=== PATIENT | female | born 1965 | race Caucasian/White ===

== ENCOUNTER 2018-03-29 09:58 | Day surgery (SDC) | payer OTHER ==
[2018-03-29] MEDS ORDERED: MIDAZOLAM 1 MG/ML 2 ML INJ ×2 (12:41)
[2018-03-29] MEDS ORDERED: FENTAnyl 50 MCG/ML VIAL (12:41)
== END 2018-03-29 15:34 | disposition home or self-care (01) ==
LOC: GIL 09:58
DX: Z12.11 Encounter for screening for malignant neoplasm of colon (principal); K64.4 Residual hemorrhoidal skin tags
CPT/HCPCS: 45378; 84703